=== PATIENT | female | born 1980 | race Caucasian/White ===

== ENCOUNTER 2021-05-26 19:20 | Emergency (ER) | payer OTHER, SELFPAY ==
[2021-05-26] VITALS (10 sets, daily range): BP systolic 102–112; BP diastolic 64–69; PULSE 65–89; RESP 18–19; TEMP 36.1–36.4; O2SAT 97–100
[2021-05-26 21:32] LABS: Add Manual Diff / Slide Review NO; Basophils Absolute Auto 100 /uL (0-100); Eosinophils Absolute Auto 200 /uL (0-450); Eosinophils Percent Auto 2.6 % (2-4); Hematocrit 39.1 % (36-46); Lymphocytes Absolute Auto 1800 /uL (1100-4500); Lymphocytes Percent Auto 28.2 % (25-40); Mean Corpuscular HGB Conc 33.1 % (30-36); Mean Corpuscular Hemoglobin 30.2 PG (26-34); Mean Corpuscular Volume 91.3 fL (80-100); Monocytes Absolute Auto 400 /uL (0-900); Monocytes Percent Auto 6.5 % (3-14); Neutrophils Absolute Auto 3900 /uL (1500-7000); Neutrophils Percent Auto 61.7 % (50-75); Platelet Count 111 X10^3/uL (150-400); Red Blood Cell Count 4.28 X10^6/uL (4.0-5.2); White Blood Cell Count 6.3 X10^3/uL (4.5-11.0)
[2021-05-26 21:39] LABS: Alanine Aminotransferase 41 IU/L (<35); Albumin 3.9 g/dL (3.5-5.0); Albumin Globulin Ratio 1.4 (1.0-2.8); Alkaline Phosphatase 49 U/L (38-126); Aspartate Aminotransferase 46 IU/L (14-36); Blood Urea Nitrogen 16 mg/dL (7-17); Calcium 8.9 mg/dL (8.4-10.2); Carbon Dioxide 26 mmol/L (22-32); Chloride 108 mmol/L (98-107); Estimated Glomerular Filt Rate > 60.0 mL/min (>60); Globulin 2.7 g/dL (1.7-4.1); Glucose 85 mg/dL (70-100); HEMOLYSIS < 15 (0-50); Potassium 3.8 mmol/L (3.4-5.1); Sodium 138 mmol/L (137-145); Total Protein 6.6 g/dL (6.3-8.2)
[2021-05-26] MEDS: methylPREDNISolone 1,000 MG in SODIUM CHLORIDE 0.9% 250 ML 258 ML IV (21:43)
[2021-05-26 21:44] LABS: Bilirubin Total < 0.1 mg/dL (0.2-1.3)
--- NOTE | 2021-05-26 21:49 | ED_ITS ---
HPI - Neuro Symptoms/Deficit General Chief Complaint: Neuro Symptoms/Deficit Stated Complaint: MS ATTACK/BLINDNESS IN LT EYE Time Seen by Provider: 05/26/21 19:51 Source: patient and family Mode of arrival: Family Vehicle Limitations: no limitations History of Present Illness HPI Narrative: 41-year-old woman with a history of multiple sclerosis on Copaxone since December of this year. Followed by Dr. Marshall, neurology, at the [facility]. She notes that in February she had a slight flare with increased left leg weakness and balance issues that resolved. In March had similar flare this time with right leg issues and balance difficulties. She notes that she frequently has urinary urgency and symptoms but does not currently feel like she has a bladder infection. Today she noticed decreased vi sual acuity and a sense that her entire visual field was blurred on the left side. She has a mild headache. When she has extreme lateral gaze to the left she can induce some light flashes in all visual douglass. She describes increased visual snow in the left eye. Visual acuity on the left is 20/30 and 20/20 on the right with her usual glasses in place. She does note that her gait is again mildly unstable as with her MS flares in both February and March. This time she does not note any lower extremity weakness or dysfunction otherwise. On Anticoagulants: No Related Data Allergies Allergy/AdvReac Type Severity Reaction Status Date / Time amoxicillin Allergy Verified 05/26/21 19:35 Sulfa (Sulfonamide Allergy Rash Verified 05/26/21 19:35 Antibiotics) ketorolac [From Toradol] AdvReac Verified 05/26/21 19:35 metoclopramide [From Reglan] AdvReac Verified 05/26/21 19:35 tramadol [From Ultram] AdvReac Verified 05/26/21 19:35 Review of Systems Review of Systems Narrative: Remainder of complete review of systems is otherwise unremarkable except for that included in the HPI. Hematologic/Lymphatic On Anticoagulants: No Patient History Medical History Multiple sclerosis Social History Smoking Status: Never smoker Smoking Status: Never smoker alcohol intake frequency: 0-2 drinks per day Substance Use Type: does not use Exam Narrative Exam Narrative: General: Healthy appearing, in no acute distress. Able to give a complete and coherent history. Well-nourished well-developed HEENT: Moist mucous membranes, normal sclera with reactive pupils, Respiratory: Lungs are clear to auscultation, no wheezing no rales no rhonchi. Full and symmetrical air movement Cardiac: Regular rate and rhythm no murmurs no bruits Abdomen: Soft, nontender, good bowel tones, no flank pain Skin: Warm and dry, no rashes Neurologic: Grossly neurologically intact with no obvious asymmetries or abnormalities, 2+ reflexes at biceps and patellas Extremities: No trauma, well perfused Psych: Cooperative, appropriate insight and affect Initial Vital Signs Initial Vital Signs: Vital Signs Pulse Rate 80 05/26/21 19:30 Pulse Oximetry 97 05/26/21 19:30 Course Orders Ordered: ED Orders 05/26/21 21:20 Complete Blood Count AUTO DIFF Stat Comprehensive Metabolic Panel Stat Discontinued Medications Methylprednisolone 1,000 mg/ (Sodium Chloride) 258 mls @ 258 mls/hr IV NOW ONE Stop: 05/26/21 21:16 Last Infusion: 05/26/21 22:52 Dose: 0 mls/hr Documented by: Admin: 05/26/21 21:43 Dose: 258 mls/hr Documented by: CHINMAY Vital Signs Vital signs: Vital Signs - 8 hr 05/26/21 20:00 05/26/21 20:31 05/26/21 21:00 Temperature Pulse Rate 78 80 68 Respiratory Rate Blood Pressure 103/69 Pulse Oximetry 100 98 98 05/26/21 21:30 05/26/21 23:08 05/26/21 23:09 Temperature Pulse Rate 68 65 65 Respiratory Rate Blood Pressure 102/64 Pulse Oximetry 99 99 99 05/26/21 23:13 Temperature 97.6 F Pulse Rate 66 Respiratory Rate 18 Blood Pressure 102/64 Pulse Oximetry 99 MDM - Neuro Symptoms/Deficit Lab Data Result diagrams: 05/26/21 21:20 05/26/21 21:20 Labs: Lab Results 05/26/21 05/26/21 Range/Units 21:20 21:20 WBC 6.3 (4.5-11.0) X10^3/uL RBC 4.28 (4.0-5.2) X10^6/uL Hgb 13.0 (12.0-16.0) g/dL Hct 39.1 (36-46) % MCV 91.3 (80-100) fL MCH 30.2 (26-34) PG MCHC 33.1 (30-36) % RDW 13.0 (11.6-14.8) % Plt Count 111 L (150-400) X10^3/uL Neut % (Auto) 61.7 (50-75) % Lymph % (Auto) 28.2 (25-40) % [place] % (Auto) 6.5 (3-14) % Eos % (Auto) 2.6 (2-4) % Baso % (Auto) 1.0 (0-2) % Neut # (Auto) 3900 (9581-4586) /uL Lymph # (Auto) 1800 (5523-2361) /uL [place] # (Auto) 400 (0-900) /uL Eos # (Auto) 200 (0-450) /uL Baso # (Auto) 100 (0-100) /uL Sodium 138 (137-145) mmol/L Potassium 3.8 (3.4-5.1) mmol/L Chloride 108 H (98-107) mmol/L Carbon Dioxide 26 (22-32) mmol/L BUN 16 (7-17) mg/dL Creatinine 0.64 (0.52-1.04) mg/dL Estimated GFR > 60.0 (>60) mL/min BUN/Creatinine Ratio 25.0 H (6-22) Glucose 85 (70-100) mg/dL Calcium 8.9 (8.4-10.2) mg/dL Total Bilirubin < 0.1 L (0.2-1.3) mg/dL AST 46 H (14-36) IU/L ALT 41 H (<35) IU/L Alkaline Phosphatase 49 (38-126) U/L Total Protein 6.6 (6.3-8.2) g/dL Albumin 3.9 (3.5-5.0) g/dL Globulin 2.7 (1.7-4.1) g/dL Albumin/Globulin Ratio 1.4 (1.0-2.8) Urine Dip Bedside Urine Glucose Negative Bedside Urine Bilirubin - Negative Bedside Urine Ketone - Negative Urine Specific Aston 1.015 Bedside Urine Occult Blood +/- Bedside Urine pH 6.0 Bedside Urine Protein - Negative Bedside Urine Urobilinogen - Negative Bedside Urine Nitrite - Negative Bedside Urine Leukocytes - Negative Esterase MDM Narrative Medical decision making narrative: 41-year-old woman currently on Copaxone for multiple sclerosis with visual acuity changes and beginning of an MS flare. She is given 1 g of IV Solu-Medrol in the emergency department. Labs are reassuring. Phone call to [facility] to contact her neurologist, Dr. Arnulfo roldan, to see if he has other recommendations regarding imaging or suggestions on continuing Solu-Medrol over the next 2-5 days. 9:53pm spoke with transfer center After discussion with on-call neurologist and patient she would prefer to proceed with 3 days of a 1 g Solu-Medrol each day. She will contact her primary care physician to see if any outpatient options for administering the 1 g of IV Solu-Medrol can be facilitated. Will likely need to return to the emergency room on Thursday and Thursday for infusion treatment. She will also be following up with her neurologist. She tolerated the Solu- Medrol nicely in the emergency department is safe for home discharge at this time IV site is left in place in anticipation of 2nd dose of Solu-Medrol to be given in 24 hours. Discharge Plan Departure Patient Disposition: Home Clinical Impression: Multiple sclerosis Instructions: DI for Multiple Sclerosis Activity Restrictions/Additional Instructions: Thank you for coming in today For your multiple sclerosis flare, the recommendation is 1 g of IV Solu-Medrol for 3 days in a row. Your given the 1st dose in the emergency room on May 26. Please contact your primary care physician and your neurologist to see if they have other recommendations for infusion clinics are options. If no outpatient options are available, please return to the ER tomorrow and we will infuse 1 g of IV Solu-Medrol. We have left your IV intact for this purpose If you have worsening symptoms, please feel free to return to the ER You will need to contact her neurologist in the next day or so to see if he has any additional recommendations. Apparently there are orders for MRIs to be done at the [facility] and these should be scheduled in the near future. There is also a blood test for Wale Creutzfeldt variant that is ordered and can be done at [facility]. I have given you copies of your lab work done today for you to share with your neurologist I wish you the best Referrals: Carlos Manuel Villalta, [Primary Care Provider] -
== END 2021-05-26 23:14 | disposition home or self-care (01) ==
PROVIDERS: Emergency Provider Emergency Medicine; PCP Family Medicine
DX: G35 Multiple sclerosis (principal)
CPT/HCPCS: 36415; 80053; 81003; 85025; 96365; 99284; J2930

== ENCOUNTER 2021-05-27 16:25 | Emergency (ER) | payer OTHER, SELFPAY ==
[2021-05-27 16:35] VITALS: BP 110/66; PULSE 87; RESP 16; TEMP 37.4; O2SAT 97; BMI 20.7
[2021-05-27] MEDS: methylPREDNISolone 1,000 MG in SODIUM CHLORIDE 0.9% 250 ML 258 ML IV (17:25)
--- NOTE | 2021-05-27 18:10 | ED.RECABL ---
HPI - Recheck/Abnormal Lab/Rx General Chief Complaint: Recheck/Abnormal Lab/Rx Stated Complaint: RETURING FOR ANTIBIOTICS Time Seen by Provider: 05/27/21 18:10 History of Present Illness HPI narrative: This is a 41-year-old female who comes emergency department with known multiple sclerosis. Patient has had flares in the past. She has had vision changes in the past as well. This is little bit more significant. She was seen yesterday and with consultation with her neurology team was started on at least 3 possibly 5 days of 1 g of Solu-Medrol daily. Patient is here to receive her 2nd dose. She has had a mild improvement in her vision she thinks possibly 10-20% better. She does notice some color loss as well which she has had intermittently and sometimes switching in the past, she has also had some flashes of light although she states this is improved. She notes more improvement in the right in comparison to the left. Patient denies any other major symptoms currently. She has seen neuropathology in the past. She states that they think it is often more related to changes in her brain and not an optic neuritis. She does not have a local carton counter feeder. We did discuss that might be helpful to get her visual douglass tested and she was interested in this. Patient denies any other concerns currently. Related Data Allergies Allergy/AdvReac Type Severity Reaction Status Date / Time amoxicillin Allergy Verified 05/26/21 19:35 Sulfa (Sulfonamide Allergy Rash Verified 05/26/21 19:35 Antibiotics) ketorolac [From Toradol] AdvReac Verified 05/26/21 19:35 metoclopramide [From Reglan] AdvReac Verified 05/26/21 19:35 tramadol [From Ultram] AdvReac Verified 05/26/21 19:35 Review of Systems Review of Systems ROS Unobtainable: All systems reviewed & are unremarkable except as noted in HPI and below Patient History Medical History Multiple sclerosis Social History Smoking Status: Never smoker Smoking Status: Never smoker alcohol intake frequency: 0-2 drinks per day Substance Use Type: does not use Exam Narrative Exam Narrative: GENERAL: Alert and oriented x three, female in mild distress. Patient seated in recliner. HEENT: Head normocephalic, atraumatic, EOMI, pupils reactive, face symmetric, moist mucous membranes NECK: Supple, full range of motion CARDIOVASCULAR: Regular rate and rhythm without murmurs, rubs or gallops. RESPIRATORY: Breath sounds equal bilaterally, no wheezes rales or rhonchi. ABDOMEN: Soft, nontender. Normoactive bowel sounds all 4 quadrants. No guarding or rebound, rigidity, no mass EXTREMITIES: Normal range of motion, no clubbing or edema. Neurovascularly intact NEUROLOGICAL: Cranial nerves II through XII grossly intact. Moving all extremities SKIN: Warm, dry, no petechiae, no rashes or lesions. Initial Vital Signs Initial Vital Signs: Vital Signs Temperature 99.4 F 05/27/21 16:35 Pulse Rate 87 05/27/21 16:35 Respiratory Rate 16 05/27/21 16:35 Blood Pressure 110/66 05/27/21 16:35 Pulse Oximetry 97 05/27/21 16:35 Course Orders Ordered: Discontinued Medications Methylprednisolone 1,000 mg/ (Sodium Chloride) 258 mls @ 258 mls/hr IV NOW ONE Stop: 05/27/21 16:37 Last Infusion: 05/27/21 18:33 Dose: 0 mls/hr Documented by: Admin: 05/27/21 17:25 Dose: 258 mls/hr Documented by: MARTINE Vital Signs Vital signs: Vital Signs - 8 hr 05/27/21 16:35 Temperature 99.4 F Pulse Rate 87 Respiratory Rate 16 Blood Pressure 110/66 Pulse Oximetry 97 MDM - Recheck/Abnormal Lab/Rx Lab Data Result diagrams: 05/27/21 17:45 05/27/21 17:45 Labs: Lab Results 05/27/21 05/27/21 Range/Units 17:45 17:45 WBC 13.4 H D (4.5-11.0) X10^3/uL RBC 4.43 (4.0-5.2) X10^6/uL Hgb 13.5 (12.0-16.0) g/dL Hct 40.3 (36-46) % MCV 91.1 (80-100) fL MCH 30.5 (26-34) PG MCHC 33.4 (30-36) % RDW 12.7 (11.6-14.8) % Plt Count 122 L (150-400) X10^3/uL Neut % (Auto) 87.2 H D (50-75) % Lymph % (Auto) 7.9 L D (25-40) % [place] % (Auto) 4.8 (3-14) % Eos % (Auto) 0.0 L (2-4) % Baso % (Auto) 0.1 (0-2) % Neut # (Auto) 16397 H (1271-6575) /uL Lymph # (Auto) 1100 (8754-5962) /uL [place] # (Auto) 600 (0-900) /uL Eos # (Auto) 0 (0-450) /uL Baso # (Auto) 0 (0-100) /uL Sodium 139 (137-145) mmol/L Potassium 4.2 (3.4-5.1) mmol/L Chloride 107 (98-107) mmol/L Carbon Dioxide 24 (22-32) mmol/L BUN 17 (7-17) mg/dL Creatinine 0.82 (0.52-1.04) mg/dL Estimated GFR > 60.0 (>60) mL/min BUN/Creatinine Ratio 20.7 (6-22) Glucose 100 (70-100) mg/dL Calcium 9.4 (8.4-10.2) mg/dL Total Bilirubin 0.2 (0.2-1.3) mg/dL AST 40 H (14-36) IU/L ALT 43 H (<35) IU/L Alkaline Phosphatase 44 (38-126) U/L Total Protein 6.8 (6.3-8.2) g/dL Albumin 4.1 (3.5-5.0) g/dL Globulin 2.7 (1.7-4.1) g/dL Albumin/Globulin Ratio 1.5 (1.0-2.8) MDM Narrative Medical decision making narrative: Patient's visual acuity is similar to yesterday. Plan to return for third dose of Solu-medrol in 24 hours. Discharge Plan Departure Patient Disposition: Home Clinical Impression: Multiple sclerosis Activity Restrictions/Additional Instructions: Please return in 24 hours for your 3rd dose of 1 g of Solu-Medrol, I would ask that you touch base with your neurology team to see if they would like you to continue afterwards. If you prefer we can contact them here in the department. There may be an option to have your Solu-Medrol infused at the local infusion clinic which is in the Oncology Department. Your neurology team can order this or your primary care physician can possibly order this under the Neurology team. This may be easier and require less wait for you. It may be helpful to have an ophthalmology exam, we do not have Neuro-Ophthalmology available but Dr. Tuttle or Dr. Cai do work locally and may be willing to see you over the next several days. Please return for worsening symptoms. As noted by Dr. Haynes, you have orders for MRIs as well as a blood test for Wale Creutzfeldt variant to be done at [facility]. Referrals: Max Tuttle MD [Physician] - Carlos Manuel Villalta DO [Primary Care Provider] -
[2021-05-27 18:20] LABS: Alanine Aminotransferase 43 IU/L (<35); Albumin 4.1 g/dL (3.5-5.0); Albumin Globulin Ratio 1.5 (1.0-2.8); Alkaline Phosphatase 44 U/L (38-126); Aspartate Aminotransferase 40 IU/L (14-36); BUN Creatinine Ratio 20.7 (6-22); Bilirubin Total 0.2 mg/dL (0.2-1.3); Blood Urea Nitrogen 17 mg/dL (7-17); Calcium 9.4 mg/dL (8.4-10.2); Carbon Dioxide 24 mmol/L (22-32); Chloride 107 mmol/L (98-107); Estimated Glomerular Filt Rate > 60.0 mL/min (>60); Globulin 2.7 g/dL (1.7-4.1); Glucose 100 mg/dL (70-100); HEMOLYSIS < 15 (0-50); Potassium 4.2 mmol/L (3.4-5.1); Sodium 139 mmol/L (137-145); Total Protein 6.8 g/dL (6.3-8.2)
[2021-05-27 18:52] LABS: Add Manual Diff / Slide Review NO; Basophils Absolute Auto 0 /uL (0-100); Basophils Percent Auto 0.1 % (0-2); Eosinophils Absolute Auto 0 /uL (0-450); Hematocrit 40.3 % (36-46); Hemoglobin 13.5 g/dL (12.0-16.0); Lymphocytes Absolute Auto 1100 /uL (1100-4500); Lymphocytes Percent Auto 7.9 % (25-40); Mean Corpuscular HGB Conc 33.4 % (30-36); Mean Corpuscular Hemoglobin 30.5 PG (26-34); Mean Corpuscular Volume 91.1 fL (80-100); Monocytes Absolute Auto 600 /uL (0-900); Monocytes Percent Auto 4.8 % (3-14); Neutrophils Absolute Auto 11700 /uL (1500-7000); Neutrophils Percent Auto 87.2 % (50-75); Platelet Count 122 X10^3/uL (150-400); Red Blood Cell Count 4.43 X10^6/uL (4.0-5.2); Red Cell Distribution Width 12.7 % (11.6-14.8); White Blood Cell Count 13.4 X10^3/uL (4.5-11.0)
== END 2021-05-27 18:43 | disposition home or self-care (01) ==
PROVIDERS: Emergency Provider Emergency Medicine; PCP Family Medicine
DX: G35 Multiple sclerosis (principal)
CPT/HCPCS: 36415; 80053; 85025; 86711; 96365; 99284; J2930

== ENCOUNTER 2021-05-28 12:36 | Emergency (ER) | payer OTHER, SELFPAY ==
[2021-05-28 12:50] VITALS: BP 106/60; PULSE 73; RESP 16; TEMP 37.1; O2SAT 99; BMI 20.7
--- NOTE | 2021-05-28 12:50 | ED.RECABL ---
HPI - Recheck/Abnormal Lab/Rx General Chief Complaint: Recheck/Abnormal Lab/Rx Stated Complaint: MS attack here for 3rd Infusion Time Seen by Provider: 05/28/21 12:50 History of Present Illness HPI narrative: Patient is a 41-year-old female who has history of MS presenting for her 3rd dose of 1000 mg of Solu-Medrol per Neurology. She initially was seen on 05/26/2021, she is having decreased visual acuity. She denies any weakness. She describes it as looking at her old picture. She reports some improvement Chambers was seen yesterday and noted but 10-15% improvement today she notices very mild improvement. She says that she can see but she certainly has some black spots. Her right eye is slightly tender. But she otherwise appears well and feels good. No weakness numbness tingling nausea vomiting chest pain shortness of breath Related Data Allergies Allergy/AdvReac Type Severity Reaction Status Date / Time amoxicillin Allergy Verified 05/26/21 19:35 Sulfa (Sulfonamide Allergy Rash Verified 05/26/21 19:35 Antibiotics) ketorolac [From Toradol] AdvReac Verified 05/26/21 19:35 metoclopramide [From Reglan] AdvReac Verified 05/26/21 19:35 tramadol [From Ultram] AdvReac Verified 05/26/21 19:35 Review of Systems Review of Systems ROS Unobtainable: All systems reviewed & are unremarkable except as noted in HPI and below Patient History Medical History Multiple sclerosis Social History Smoking Status: Never smoker Smoking Status: Never smoker alcohol intake frequency: 0-2 drinks per day Substance Use Type: does not use Exam Initial Vital Signs Initial Vital Signs: Vital Signs Temperature 98.7 F 05/28/21 12:50 Pulse Rate 73 05/28/21 12:50 Respiratory Rate 16 05/28/21 12:50 Blood Pressure 106/60 05/28/21 12:50 Pulse Oximetry 99 05/28/21 12:50 GENERAL: Well-appearing, well-nourished and in no acute distress. EYES: Extraocular muscles intact per all CARDIOVASCULAR: peripheral pulses in tact, cap refill <2 sec RESPIRATORY: No respiratory distress, speaks in full sentences without difficulty EXTREMITIES: Normal range of motion, no clubbing or edema. Neurovascularly intact NEUROLOGICAL: Cranial nerves II through XII grossly intact. Normal gait and speech. Broom Stitcher strength equal bilaterally sensation in upper and lower extremities intact SKIN: Warm, dry, no petechiae, no rashes or lesions. Course Orders Ordered: Discontinued Medications Methylprednisolone 1,000 mg/ (Sodium Chloride) 258 mls @ 258 mls/hr IV NOW ONE Stop: 05/28/21 12:52 Last Infusion: 05/28/21 14:15 Dose: 0 mls/hr Documented by: Admin: 05/28/21 13:14 Dose: 258 mls/hr Documented by: CTRJJ Vital Signs Vital signs: Vital Signs - 8 hr 05/28/21 12:50 Temperature 98.7 F Pulse Rate 73 Respiratory Rate 16 Blood Pressure 106/60 Pulse Oximetry 99 MDM - Recheck/Abnormal Lab/Rx MDM Narrative Medical decision making narrative: I discussed case with her neurologist. She states she does not need anymore Solu-Medrol. In fact he will see her in clinic and he has a new plan. Patient understands and agrees with this. She would prefer to go home and be with children. Discharge Plan Departure Patient Disposition: Home Clinical Impression: Multiple sclerosis Instructions: DI for Multiple Sclerosis Activity Restrictions/Additional Instructions: *You have been diagnosed with multiple sclerosis *What to do: I discussed case with your neurologist in [place] provider. He stated only 3 days of steroids. You may still have improvement for up to 1 month. He has new plans for you and will see you in clinic *Continue to take medications as directed *Follow up with your primary care provider in 2-3 days *Return to ER if you should have increasing weakness, worsening symptoms or any new, worsening or concerning symptoms Referrals: Carlos Manuel Villalta DO [Primary Care Provider] -
[2021-05-28] MEDS: methylPREDNISolone 1,000 MG in SODIUM CHLORIDE 0.9% 250 ML 258 ML IV (13:14)
[2021-05-28 14:39] VITALS: PULSE 64; RESP 16; O2SAT 99
== END 2021-05-28 14:42 | disposition home or self-care (01) ==
PROVIDERS: Emergency Provider Emergency Medicine; PCP Family Medicine
DX: G35 Multiple sclerosis (principal)
CPT/HCPCS: 96365; 99283; 99284; J2930

== ENCOUNTER 2022-04-08 18:50 | Emergency (ER) | payer OTHER, SELFPAY ==
[2022-04-08 19:00] VITALS: BP 138/79; PULSE 95; RESP 18; TEMP 36.8; O2SAT 100; BMI 21.6
[2022-04-08 19:50] LABS: Add Manual Diff / Slide Review NO; Basophils Absolute Auto 100 /uL (0-100); Eosinophils Absolute Auto 0 /uL (0-450); Eosinophils Percent Auto 0.4 % (2-4); Hematocrit 41.6 % (36-46); Lymphocytes Absolute Auto 1400 /uL (1100-4500); Lymphocytes Percent Auto 19.3 % (25-40); Mean Corpuscular HGB Conc 33.7 % (30-36); Mean Corpuscular Hemoglobin 30.2 PG (26-34); Mean Corpuscular Volume 89.6 fL (80-100); Monocytes Absolute Auto 500 /uL (0-900); Monocytes Percent Auto 6.7 % (3-14); Neutrophils Absolute Auto 5100 /uL (1500-7000); Neutrophils Percent Auto 72.6 % (50-75); Platelet Count 117 X10^3/uL (150-400); Red Blood Cell Count 4.64 X10^6/uL (4.0-5.2); Red Cell Distribution Width 13.1 % (11.6-14.8); White Blood Cell Count 7.1 X10^3/uL (4.5-11.0)
--- NOTE | 2022-04-08 19:51 | ED_ITS ---
HPI - Extremity Problem General Chief complaint: Extremity Problem,Nontraumatic Stated complaint: MS flare Time Seen by Provider: 04/08/22 19:51 Source: patient and family Mode of arrival: Ambulatory History of Present Illness HPI Narrative: 42-year-old woman with history of multiple sclerosis. Followed by Neurology at the [facility], Dr Neal. For the last 3 days she has been having increased flare. She describes symptoms initially starting on the bottom of her left foot and over 3 days progressive paresthesias extending up the left side of her body now almost to her shoulder. Today she started noting paresthe diana on the bottom of her right foot and around mid afternoon today she began noticing a ?MS hug? with midthoracic bandlike paresthesia. She states that she has had increasing tremor that is mild. She still has visual abnormalities with no changes over the last 3 days. She is noting some tightness in spinal cord lumbar region left side and increasing difficulty with gait instability which she has noticed previously. She notes that she and her removal to [place] on April 18, trying to move, find a new house etc. has been significantly stressful and she believes that is the trigger for this phase. She describes no fever, cough, headaches, chest pain, palpitations, nausea vomiting or diarrhea. She is trying a 72 hour fast to see if the stimulation of the stem cells and autophogy at 72 hours helps in any way. She has tried plasmapheresis and did not find it helpful. She currently is not on any MS modulating medications the last was a Copaxone that was discontinued last May when it was not particularly effective. Related Data Allergies Allergy/AdvReac Type Severity Reaction Status Date / Time amoxicillin Allergy Verified 04/08/22 19:05 Sulfa (Sulfonamide Allergy Rash Verified 04/08/22 19:05 Antibiotics) ketorolac [From Toradol] AdvReac Verified 04/08/22 19:05 metoclopramide [From Reglan] AdvReac Verified 04/08/22 19:05 tramadol [From Ultram] AdvReac Verified 04/08/22 19:05 Review of Systems Review of Systems Narrative: Remainder of complete review of systems is otherwise unremarkable except for that included in the HPI. Patient History Medical History (Updated 04/08/22 @ 21:16 by Talia Haynes MD) Multiple sclerosis Social History Smoking Status: Never smoker Smoking Status: Never smoker alcohol intake frequency: 0-2 drinks per day Substance Use Type: does not use Exam Initial Vital Signs Initial Vital Signs: Vital Signs Temperature 98.2 F 04/08/22 19:00 Pulse Rate 95 H 04/08/22 19:00 Respiratory Rate 18 04/08/22 19:00 Blood Pressure 138/79 04/08/22 19:00 Pulse Oximetry 100 04/08/22 19:00 General: Healthy appearing, in no acute distress. Able to give a complete and coherent history. Well-nourished well-developed HEENT: Moist mucous membranes, normal sclera with reactive pupils, Neck: No JVD, supple Respiratory: Lungs are clear to auscultation, no wheezing no rales no rhonchi. Full and symmetrical air movement Cardiac: Regular rate and rhythm no murmurs no bruits Abdomen: Soft, nontender, good bowel tones, no flank pain Skin: Warm and dry, no rashes Neurologic: Mild paresthesia over the entire left side of her body to the shoulder. Mild gait difficulty Extremities: No trauma, well perfused Psych: Cooperative, appropriate insight and affect Course Orders Ordered: Discontinued Medications Methylprednisolone 1,000 mg/ (Sodium Chloride) 258 mls @ 258 mls/hr IV NOW ONE Stop: 04/08/22 20:23 Last Infusion: 04/08/22 21:41 Dose: 0 mls/hr Documented by: Admin: 04/08/22 20:41 Dose: 258 mls/hr Documented by: KANA Vital Signs Vital signs: Vital Signs - 8 hr 04/08/22 21:49 Pulse Rate 94 H Respiratory Rate 15 Blood Pressure 105/55 L Pulse Oximetry 98 MDM - Extremity (Nontraumatic) Lab Data Result diagrams: 04/08/22 19:11 04/08/22 19:11 Labs: Lab Results 04/08/22 04/08/22 04/08/22 Range/Units 19:11 19:11 19:40 WBC 7.1 (4.5-11.0) X10^3/uL RBC 4.64 (4.0-5.2) X10^6/uL Hgb 14.0 (12.0-16.0) g/dL Hct 41.6 (36-46) % MCV 89.6 (80-100) fL MCH 30.2 (26-34) PG MCHC 33.7 (30-36) % RDW 13.1 (11.6-14.8) % Plt Count 117 L (150-400) X10^3/uL Neut % (Auto) 72.6 (50-75) % Lymph % (Auto) 19.3 L (25-40) % Yates % (Auto) 6.7 (3-14) % Eos % (Auto) 0.4 L (2-4) % Baso % (Auto) 1.0 (0-2) % Neut # (Auto) 5100 (0401-3533) /uL Lymph # (Auto) 1400 (6919-1149) /uL Yates # (Auto) 500 (0-900) /uL Eos # (Auto) 0 (0-450) /uL Baso # (Auto) 100 (0-100) /uL Sodium 137 (137-145) mmol/L Potassium 4.4 (3.4-5.1) mmol/L Chloride 103 (98-107) mmol/L Carbon Dioxide 23 (22-32) mmol/L BUN 9 (7-17) mg/dL Creatinine 0.64 (0.52-1.04) mg/dL Estimated GFR > 60 (>60) mL/min BUN/Creatinine Ratio 14.1 (6-22) Glucose 68 L (70-100) mg/dL Calcium 9.4 (8.4-10.2) mg/dL Total Bilirubin 0.8 (0.2-1.3) mg/dL AST 51 H (14-36) IU/L ALT 64 H (<35) IU/L Alkaline Phosphatase 57 (38-126) U/L Total Protein 7.6 (6.3-8.2) g/dL Albumin 4.8 (3.5-5.0) g/dL Globulin 2.8 (1.7-4.1) g/dL Albumin/Globulin Ratio 1.7 (1.0-2.8) Urine RBC None seen (0-5/HPF) Urine WBC None seen (0-5/HPF) Ur Squamous Epith Cells 5-10 /hpf H (0-5/HPF) Urine Bacteria None seen (None) Ur Culture Indicated? Cult not indicated Urine Dip Bedside Urine Glucose 100 mg/dl Bedside Urine Ketone ++ 40 Urine Specific [place] 1.01 Bedside Urine Occult Blood + Bedside Urine pH 6 Bedside Urine Protein - Negative Bedside Urine Urobilinogen - Negative Bedside Urine Nitrite - Negative Bedside Urine Leukocytes - Negative Esterase MDM Narrative Medical decision making narrative: 815pm phone call to the [facility] to trying page her neurologist. In a queue to even talk to the triage nurse to begin paging. Labs returned reassuring with no evidence of electrolyte abnormalities or infection. 1 g of Solu-Medrol is started. Will a eventually talk with the neurologist but patient will be discharged home. Will contact her with plan but do anticipate she will need to return to the emergency department tomorrow for another dose of Solu-Medrol. Dr Zabala, Neurology. Suggested 3 days IV solumedrol. Does recommend MR brain and entire spine w and w/o contrast. Images sent to and Dr Almeida. Will see if televideo apt for follow up after three days of IV solumedrol and Brain/spine imaging can be arranged Discharge Plan Departure Patient Disposition: Home Clinical Impression: Multiple sclerosis exacerbation Instructions: DI for Multiple Sclerosis Activity Restrictions/Additional Instructions: Thank you for coming in today I am sorry that your experiencing so much stress with your move. Your symptoms are very classic for an MS flare. Unfortunately due to very high volumes of been unable to even begin to talk to the call center to page your neurologist. You have been given a g of Solu-Medrol and are safe for home discharge. I will text you at [phone] with remainder of the plan once I do talk with the neurologist this evening. I would anticipate returning to the emergency department tomorrow in the afternoon for another g of IV Solu-Medrol. Referrals: Carlos Manuel Villalta, [Primary Care Provider] -
[2022-04-08 19:54] LABS: Alanine Aminotransferase 64 IU/L (<35); Albumin 4.8 g/dL (3.5-5.0); Albumin Globulin Ratio 1.7 (1.0-2.8); Alkaline Phosphatase 57 U/L (38-126); Aspartate Aminotransferase 51 IU/L (14-36); BUN Creatinine Ratio 14.1 (6-22); Bilirubin Total 0.8 mg/dL (0.2-1.3); Blood Urea Nitrogen 9 mg/dL (7-17); Calcium 9.4 mg/dL (8.4-10.2); Carbon Dioxide 23 mmol/L (22-32); Chloride 103 mmol/L (98-107); Estimated Glomerular Filt Rate > 60 mL/min (>60); Globulin 2.8 g/dL (1.7-4.1); Glucose 68 mg/dL (70-100); HEMOLYSIS < 15 (0-50); Potassium 4.4 mmol/L (3.4-5.1); Sodium 137 mmol/L (137-145); Total Protein 7.6 g/dL (6.3-8.2)
[2022-04-08 20:03] LABS: RBC Urine None Seen (0-5/HPF); WBC Urine None Seen (0-5/HPF)
[2022-04-08 20:04] LABS: Bacteria Urine None Seen; Culture Indicated Urine Cult Not Indicated; Squamous Epithelial Cell Urine 5-10 /HPF (0-5/HPF)
[2022-04-08] MEDS: methylPREDNISolone 1,000 MG in SODIUM CHLORIDE 0.9% 250 ML 258 MG IV (20:41)
--- NOTE | 2022-04-08 21:48 | PC.NURSE ---
Pt with history of MS. reports this morning with numbness to left foot getting worse throughout the day. Now numbness extending up leg.
[2022-04-08 21:49] VITALS: BP 105/55; PULSE 94; RESP 15; O2SAT 98
== END 2022-04-08 21:51 | disposition home or self-care (01) ==
PROVIDERS: Emergency Provider Emergency Medicine; PCP Family Medicine
DX: G35 Multiple sclerosis (principal)
CPT/HCPCS: 36415; 80053; 81003; 81015; 85025; 96365; 99284; J2930

== ENCOUNTER 2022-04-09 16:19 | Emergency (ER) | payer OTHER, SELFPAY ==
--- NOTE | 2022-04-09 16:21 | DI.MRI.S_ITS ---
PROCEDURE: MR HEAD/BRAIN WO/W CON INDICATIONS: ms flare TECHNIQUE: Noncontrast sagittal and axial FLAIR, axial and coronal T2 fast spin echo, axial VIBE, axial gradient echo, axial diffusion and ADC through the brain. After the administration of contrast, axial and coronal VIBE with fat saturation through the brain. COMPARISON: None. FINDINGS: Image quality: Excellent. CSF spaces: Ventricles are normal in size and shape. Basal cisterns are patent. No extra-axial fluid collections. Brain: No intracranial bleeds or mass effects. Lee-white matter interface appears intact. There are several scattered periventricular, deep white matter T2/FLAIR hyperintensities measuring up to 1.1 x 1.2 cm on the left. This lesion is pericallosal in the left parietal lobe. No associated enhancement or diffusion restriction abnormality. Similar but smaller T2/FLAIR hyperintensities noted on the right. No abnormal intracranial enhancement. Diffusion weighted images show no acute ischemic insults. Brainstem appears normal. Normal intravascular flow voids are present. Skull and face: Calvarial marrow signal is normal. Orbits appear normal. Sinuses: Sinuses and mastoids are clear. IMPRESSION: 1. Scattered T2/FLAIR hyperintense lesions noted in the deep white matter of the bilateral cerebral hemisphere with largest lesion measuring 1.2 cm seen in the pericallosal white matter of the posterior left parietal lobe. No associated enhancement or diffusion restriction abnormality to suggest active lesion. Findings are compatible with a demyelinating process given reported history of multiple sclerosis. 2. Otherwise, no acute abnormalities identified in the brain. Dictated by: Phuc Connors M.D. on 04/09/2022 at 20:34 Approved by: Phuc Connors M.D. on 04/09/2022 at 20:46
--- NOTE | 2022-04-09 16:21 | DI.MRI.S_ITS ---
PROCEDURE: MR LUMBAR SPINE WO/W CON INDICATIONS: ms flare. neurology requested. TECHNIQUE: Noncontrast sagittal T1 spin echo and T2 fast spin echo, sagittal STIR, axial T1 and T2 fast spin echo through the lumbar spine. In cases with scoliosis, additional coronal T2 fast spin echo may be performed. After the administration of contrast, sagittal and axial T1 spin echo with fat saturation through the lumbar spine. COMPARISON: None. FINDINGS: Image quality: Excellent. Alignment and curvature: There is normal bony alignment. Marrow: Marrow is of normal overall signal. No acute vertebral body compression fractures. No suspicious marrow enhancement. Intravertebral hemangioma is noted at T12, L4, and L5. Spinal cord: Conus medullaris terminates at the L1 level. Visualized spinal cord demonstrates normal signal, without suspicious enhancement. Paraspinous soft tissues: No paravertebral masses or abnormal enhancement. T12-L1: Normal appearance. L1-L2: Normal appearance. L2-L3: Normal appearance. L3-L4: Minimal symmetric disc bulge. Mild bilateral facet arthropathy. There is effacement of the anterior thecal sac without significant neuroforaminal or spinal canal stenosis. L4-L5: Minimal loss of disc signal intensity. No significant disc space loss. Diffuse disc bulge. There is a left lateral slip of T2 hyperintensity compatible with an annular fibrosus fissure. Mild bilateral facet arthropathy. There is mild left and minimal right bilateral neuroforaminal stenosis without significant spinal canal stenosis. L5-S1: Normal appearance. IMPRESSION: Lumbar spine without acute abnormalities or suspicious mass or enhancement. Mild multilevel lumbar spondylosis as described above by vertebral level. Findings are most prominent at L3-4 and L4-5. Posterior, left lateral annular fibrosus fissure of the L4-5 disc. Dictated by: Phuc Connors M.D. on 04/09/2022 at 21:22 Approved by: Phuc Connors M.D. on 04/09/2022 at 21:27
--- NOTE | 2022-04-09 16:21 | DI.MRI.S_ITS ---
PROCEDURE: MR THORACIC SPINE WO/W CON INDICATIONS: ms flare. neurology requested. TECHNIQUE: Noncontrast sagittal T1 spin echo and T2 fast spin echo, sagittal STIR, axial T1 and T2 fast spin echo through the thoracic spine. After the administration of contrast, axial and sagittal T1 spin echo with fat saturation through the thoracic spine. COMPARISON: None. FINDINGS: Image quality: Excellent. Alignment and curvature: There is normal bony alignment. Marrow: Marrow is of normal overall signal. No acute vertebral body compression fractures. Vertebral body hemangiomas noted at T9 and T12. Spinal cord: Visualized spinal cord is of normal signal and size, without abnormal enhancement. No definite demyelinating plaque identified in the thoracic spinal cord. Paraspinous soft tissues: No paravertebral masses or abnormal enhancement. Miscellaneous: Central canal and foramina appear widely patent at all scanned levels. IMPRESSION: Thoracic spine without acute abnormalities or suspicious enhancement. No definite thoracic spinal cord lesions identified in this patient with history of multiple sclerosis. Dictated by: Phuc Connors M.D. on 04/09/2022 at 21:13 Approved by: Phuc Connors M.D. on 04/09/2022 at 21:17
--- NOTE | 2022-04-09 16:21 | DI.MRI.S_ITS ---
PROCEDURE: MR CERVICAL SPINE WO/W CON INDICATIONS: ms flare. neurology requested. TECHNIQUE: Noncontrast sagittal T1 spin echo and T2 fast spin echo, sagittal STIR, sagittal PD fast spin echo, foraminal oblique sagittal T2 fast spin echo, axial gradient echo or T2 fast spin echo through the cervical spine. After the administration of contrast, sagittal and axial T1 spin echo with fat saturation through the cervical spine. COMPARISON: None. FINDINGS: Image quality: Excellent. Alignment and curvature: There is normal bony alignment. Marrow: Marrow demonstrates normal overall signal. Spinal cord: Visualized spinal cord is normal in size, with 2 visualized cervical cord lesions measuring approximately 9 mm in craniocaudal dimension and 6 mm in diameter. This lesion is seen at the level of C2 without evidence for enhancement. The 2nd lesion is seen at the level of C3 measuring approximately 9 mm in craniocaudal dimension and approximately 4 mm in diameter. There is no visible enhancement of this lesion. Otherwise, remainder of the visualized cervical spinal cord demonstrates normal signal intensity. No other areas of suspicious enhancement. No cerebellar tonsillar herniation. Paraspinous soft tissues: No paravertebral masses or suspicious enhancement. C2-C3: Normal appearance. C3-C4: Normal appearance. C4-C5: Broad-based posterior disc osteophyte complex. Mild effacement of the anterior thecal sac. No significant neural foraminal stenosis. No significant spinal canal stenosis. C5-C6: Broad-based posterior disc osteophyte complex without significant neural foraminal or spinal canal stenosis. C6-C7: Broad-based posterior disc osteophyte complex without significant neural foraminal or spinal canal stenosis. C7-T1: Normal appearance. IMPRESSION: 1. There are 2 cervical cord white matter lesions noted at the levels of C2 and C3 respectively compatible with demyelinating disease. No evidence for associated enhancement of these lesions. 2. Otherwise, no acute abnormalities identified in the cervical spine. 3. Mild multilevel cervical spondylosis most pronounced from C4-5 through C6-7. Dictated by: Phuc Connors M.D. on 04/09/2022 at 20:51 Approved by: Phuc Connors M.D. on 04/09/2022 at 21:10
[2022-04-09] MEDS: methylPREDNISolone 1,000 MG in SODIUM CHLORIDE 0.9% 250 ML 258 MG IV (19:48)
[2022-04-09 19:52] VITALS: BP 113/57; PULSE 97; RESP 15; TEMP 36.8; O2SAT 100; BMI 21.6
--- NOTE | 2022-04-09 19:57 | PC.NURSE ---
Pt reports worsening ms symptoms. States her she is feeling unsteady on her legs. Today reports numbness up to her chest with shortness of breath related to the MS Band.
--- NOTE | 2022-04-09 20:38 | ED_ITS ---
HPI - Recheck/Abnormal Lab/Rx General Chief Complaint: Recheck/Abnormal Lab/Rx Stated Complaint: MS FLARE Time Seen by Provider: 04/09/22 16:21 Source: patient Mode of arrival: Ambulatory History of Present Illness HPI narrative: 42-year-old woman with multiple sclerosis currently not on medications with increasing symptoms starting 4 days ago. She was started on 3 days of Solu- Medrol, 1 g daily and returns for her infusion today. After discussing findings with her neurologist last night he did recommend imaging of her brain and entire spine which was done today. She notes progression of paresthesias of the right side now. She describes tingling sensation in the palms and the soles that almost feels as if there being constantly rubbed against a sandpaper. She also describes increasing numbness of her entire torso, describes being unable to heal her anterior chest wall at all. She is able to take deep breath but feels like she is somewhat short of breath. Related Data Allergies Allergy/AdvReac Type Severity Reaction Status Date / Time amoxicillin Allergy Verified 04/08/22 19:05 Sulfa (Sulfonamide Allergy Rash Verified 04/08/22 19:05 Antibiotics) ketorolac [From Toradol] AdvReac Verified 04/08/22 19:05 metoclopramide [From Reglan] AdvReac Verified 04/08/22 19:05 tramadol [From Ultram] AdvReac Verified 04/08/22 19:05 Review of Systems Review of Systems Narrative: Remainder of complete review of systems is otherwise unremarkable except for that included in the HPI. Patient History Medical History (Updated 04/09/22 @ 21:17 by Talia Haynes MD) Multiple sclerosis Social History Smoking Status: Never smoker Smoking Status: Never smoker alcohol intake frequency: 0-2 drinks per day Substance Use Type: does not use Exam Initial Vital Signs Initial Vital Signs: Vital Signs Temperature 98.3 F 04/09/22 19:52 Pulse Rate 97 H 04/09/22 19:52 Respiratory Rate 15 04/09/22 19:52 Blood Pressure 113/57 L 04/09/22 19:52 Pulse Oximetry 100 04/09/22 19:52 General: Alert appropriate in no acute distress Respiratory: Able to speak in full sentences, no obvious respiratory distress Skin: No obvious rashes, warm and dry Neurologic: Increased paresthesias now including right leg and upper chest. Psych: appropriate insight and affect, cooperative Course Orders Ordered: ED Orders 04/09/22 16:21 MR cervical spine wo/w con Stat MR head/brain wo/w con Stat MR lumbar spine wo/w con Stat MR thoracic spine wo/w con Stat Discontinued Medications Methylprednisolone 1,000 mg/ (Sodium Chloride) 258 mls @ 258 mls/hr IV NOW ONE Stop: 04/09/22 16:22 Last Admin: 04/09/22 19:48 Dose: 258 mls/hr Documented by: KANA Vital Signs Vital signs: Vital Signs - 8 hr 04/09/22 19:52 Temperature 98.3 F Pulse Rate 97 H Respiratory Rate 15 Blood Pressure 113/57 L Pulse Oximetry 100 MDM - Recheck/Abnormal Lab/Rx MDM Narrative Medical decision making narrative: 42-year-old woman with acute MS exacerbation. Brain and spine imaging was done and was not yet returned by time of discharge. She was given her 2nd g of IV Solu-Medrol and will need her 3rd tomorrow. When she returns tomorrow would like to give her copies of the MRI result. She is complaining of increasing chest paresthesias and a sensation that she was feeling a type course that with some mild dyspnea associated with that. Her breathing was otherwise uncovered today but if that is worse tomorrow we may need to further evaluate and discuss with the neurologist and decide if an extended course of treatment is appropriate. Patient will be back tomorrow afternoon for her 3rd dose of steroid Discharge Plan Departure Patient Disposition: Home Clinical Impression: Multiple sclerosis exacerbation Activity Restrictions/Additional Instructions: Thank you for coming in today You got your to 2nd of 3 doses of IV Solu-Medrol The entire MRI results have not yet been read. Results should be available by tomorrow and we can print them out for you to take home. I am glad you ask for the disc as well. If you are noticing that your continuing to have more tightness around her chest and more shortness of breath please make sure that you mention that early to the doctor that you are meeting tomorrow. If that is worse, would likely will again review your case with Neurology and they may recommend a total of 5 days of Solu-Medrol. Same time, same place for your 3rd infusion of Solu-Medrol tomorrow :) I wish you the best Referrals: Carlos Manuel Villalta DO [Primary Care Provider] -
[2022-04-09 21:26] VITALS: BP 101/57; PULSE 84; RESP 64; O2SAT 100
== END 2022-04-09 21:31 | disposition home or self-care (01) ==
PROVIDERS: Emergency Provider Emergency Medicine; PCP Family Medicine
DX: G35 Multiple sclerosis (principal); R20.2 Paresthesia of skin; R06.00 Dyspnea, unspecified
CPT/HCPCS: 70553; 72156; 72157; 72158; 96365; 96366; 99284; A9579; J2930

== ENCOUNTER 2022-04-10 19:13 | Emergency (ER) | payer OTHER, SELFPAY ==
[2022-04-10 19:33] VITALS: BP 115/65; PULSE 85; RESP 16; TEMP 36.4; O2SAT 100; BMI 21.6
[2022-04-10] MEDS: methylPREDNISolone 1,000 MG in SODIUM CHLORIDE 0.9% 250 ML 258 MG IV (19:49)
--- NOTE | 2022-04-10 22:47 | ED_ITS ---
HPI - Recheck/Abnormal Lab/Rx General Chief Complaint: Recheck/Abnormal Lab/Rx Stated Complaint: here for 3rd infusion Time Seen by Provider: 04/10/22 22:34 Source: patient Mode of arrival: Ambulatory History of Present Illness HPI narrative: Patient is a 42-year-old female with history of multiple sclerosis not currently taking any medications here for her 3rd dose of 1 g of Solu-Medrol. She had outpatient MRI of brain cervical spine thoracic spine and lumbar spine done yesterday. CT brain does show a flare. Lumbar does show disc bulge as well. She has had a lot of stress in her life lately they are moving to [facility] next week. She had an infection with COVID 1 month ago. She previously has not responded to Solu-Medrol needed plasmapheresis which she also had minimal response to. She understands that there is very little anyone can do. She would like to go home. She is having some pins and needles in both hands and feet. She feels weakness in her hands and difficulty writing although she is still able to do so. Previously her MS was controlled with diet and exercise. Related Data Allergies Allergy/AdvReac Type Severity Reaction Status Date / Time amoxicillin Allergy Verified 04/08/22 19:05 Sulfa (Sulfonamide Allergy Rash Verified 04/08/22 19:05 Antibiotics) ketorolac [From Toradol] AdvReac Verified 04/08/22 19:05 metoclopramide [From Reglan] AdvReac Verified 04/08/22 19:05 tramadol [From Ultram] AdvReac Verified 04/08/22 19:05 Review of Systems Review of Systems Narrative: GENERAL: Denies chills, fatigue, malaise, fever, sweats, travel HEENT: Denies sinus pain, ear pain, sore throat, difficulty swallowing, neck pain RESPIRATORY: Denies dyspnea, cough, wheezing, hemoptysis, sputum. CARDIOVASCULAR: Denies chest pain, palpitations, orthopnea, edema GASTROINTESTINAL: Denies nausea, vomiting, abdominal pain, diarrhea, constipation, melena. : Denies dysuria, frequency, incontinence, hematuria, urinary retention, flank pain. MUSCULOSKELETAL: Denies weakness, joint pain, or bony pain SKIN: No rash, no erythema, no pruritus NEUROLOGIC: See HPI PSYCHIATRIC: No concerning psychosocial issues. 12 point review of systems is negative except for those stated above and HPI Patient History Medical History (Updated 04/10/22 @ 23:09 by Callie Perez DO) Multiple sclerosis Social History Smoking Status: Never smoker Smoking Status: Never smoker alcohol intake frequency: 0-2 drinks per day Substance Use Type: does not use Exam Initial Vital Signs Initial Vital Signs: Vital Signs Temperature 97.6 F 04/10/22 19:33 Pulse Rate 85 04/10/22 19:33 Respiratory Rate 16 04/10/22 19:33 Blood Pressure 115/65 04/10/22 19:33 Pulse Oximetry 100 04/10/22 19:33 GENERAL: Very pleasant 42-year-old female CARDIOVASCULAR: peripheral pulses in tact, cap refill <2 sec RESPIRATORY: No respiratory distress, speaks in full sentences without difficulty EXTREMITIES: Normal range of motion, no clubbing or edema. Neurovascularly intact NEUROLOGICAL: Cranial nerves II through XII grossly intact. Normal gait and speech. Label Printer strength equal bilaterally A&O x4. SKIN: Warm, dry, no petechiae, no rashes or lesions. Course Orders Ordered: Discontinued Medications Methylprednisolone 1,000 mg/ (Sodium Chloride) 258 mls @ 258 mls/hr IV NOW ONE Stop: 04/10/22 19:29 Last Infusion: 04/10/22 20:56 Dose: 0 mls/hr Documented by: Admin: 04/10/22 19:49 Dose: 258 mls/hr Documented by: KANA Vital Signs Vital signs: Vital Signs - 8 hr 04/10/22 19:33 Temperature 97.6 F Pulse Rate 85 Respiratory Rate 16 Blood Pressure 115/65 Pulse Oximetry 100 MDM - Recheck/Abnormal Lab/Rx MDM Narrative Medical decision making narrative: At this time patient would like to go. She previously has not responded to Solu-Medrol she has not seen much improvement this time. I have offered to talk to Her neurologist at this time she declined since she is moving and will need to establish a new neurologist any way. She also is adamant that she does not want plasmapheresis again, she had painful central line placement. At this time there is really nothing further for me to do she is quite aware of the situation. I have encouraged her that if her symptoms get worsen she should return to the nearest emergency department. Discharge Plan Departure Patient Disposition: Home Clinical Impression: Multiple sclerosis exacerbation Instructions: DI for Multiple Sclerosis Activity Restrictions/Additional Instructions: *You have been diagnosed with multiple sclerosis exacerbation *What to do: Best of luck with your move. Please find a neurologist as soon as possible. If you are continuing to have any worsening symptoms do not hesitate to go to the nearest emergency department or return here if needed. *Continue to take medications as directed *Follow up with your primary care provider in 2-3 days or call [phone] *Return to ER if you should have any new, worsening or concerning symptoms Referrals: Carlos Manuel Villalta DO [Primary Care Provider] - Visit Report Forms: Patient Portal/API
[2022-04-10 23:20] VITALS: BP 105/65; PULSE 66; RESP 17; O2SAT 96
== END 2022-04-10 23:27 | disposition home or self-care (01) ==
PROVIDERS: Emergency Provider Emergency Medicine; PCP Family Medicine
DX: G35 Multiple sclerosis (principal)
CPT/HCPCS: 96365; 99283; 99284; J2930

== ENCOUNTER 2022-04-12 20:48 | Emergency (ER) | payer OTHER, SELFPAY ==
[2022-04-12 21:10] VITALS: BP 123/67; PULSE 71; RESP 16; TEMP 36; O2SAT 98; BMI 21.6
[2022-04-13] MEDS: methylPREDNISolone 1,000 MG in SODIUM CHLORIDE 0.9% 250 ML 258 MG IV (00:10)
[2022-04-13 00:14] LABS: Add Manual Diff / Slide Review YES; Hematocrit 41.6 % (36-46); Hemoglobin 14.1 g/dL (12.0-16.0); Mean Corpuscular HGB Conc 33.8 % (30-36); Mean Corpuscular Hemoglobin 30.3 PG (26-34); Mean Corpuscular Volume 89.7 fL (80-100); Platelet Count 93 X10^3/uL (150-400); Red Blood Cell Count 4.64 X10^6/uL (4.0-5.2); Red Cell Distribution Width 13.4 % (11.6-14.8); White Blood Cell Count 8.4 X10^3/uL (4.5-11.0)
[2022-04-13 00:19] LABS: Alanine Aminotransferase 39 IU/L (<35); Albumin 4.2 g/dL (3.5-5.0); Albumin Globulin Ratio 1.6 (1.0-2.8); Alkaline Phosphatase 46 U/L (38-126); Aspartate Aminotransferase 28 IU/L (14-36); BUN Creatinine Ratio 26.2 (6-22); Bilirubin Total 0.3 mg/dL (0.2-1.3); Blood Urea Nitrogen 16 mg/dL (7-17); Calcium 8.9 mg/dL (8.4-10.2); Carbon Dioxide 26 mmol/L (22-32); Chloride 104 mmol/L (98-107); Estimated Glomerular Filt Rate > 60 mL/min (>60); Globulin 2.7 g/dL (1.7-4.1); Glucose 81 mg/dL (70-100); HEMOLYSIS < 15 (0-50); Potassium 4.2 mmol/L (3.4-5.1); Sodium 138 mmol/L (137-145); Total Protein 6.9 g/dL (6.3-8.2)
--- NOTE | 2022-04-13 00:49 | ED.NEUROSD ---
HPI - Neuro Symptoms/Deficit General Chief Complaint: Neuro Symptoms/Deficit Stated Complaint: MS attack Time Seen by Provider: 04/12/22 23:24 Source: patient Mode of arrival: Ambulatory History of Present Illness HPI Narrative: 42-year-old female nonsmoker with known diagnosis of multiple sclerosis is managed by Neurology at the [facility] (Dr. Neal). She presents with her in the chief complaint of ongoing neurologic symptoms including numbness, tingling and burning of her hands and feet up to her shoulders and the MS hug. She has had ongoing visual disturbances for years and notes no change. This is her 4th day in a row and after consultation on day 1 with her Neurology group she was encouraged to present for 3-5 days of Solu-Medrol 1000 mg. Historically she has not responded to this therapy and it would appear as if this time around she has not either. She denies any change in medications and states that usually she can control her symptoms with stress medication and diet. She states that she and her are preparing to move to [place] next week and this seems to be the most likely cause of her stress response. She denies any trauma or injury. She has no chest pain or shortness of breath. She denies nausea or vomiting. Extensive imaging was ordered after prior visit including MRI of brain, cervical, thoracic and lumbar spine which shows active lesions consistent with demyelinating disease On Anticoagulants: No Related Data Previous Rx's Medication Instructions Recorded gabapentin 100 mg capsule See Rx Instructions .ROUTE 04/13/22 .COMPLEX #9 cap Allergies Allergy/AdvReac Type Severity Reaction Status Date / Time amoxicillin Allergy Verified 04/08/22 19:05 Sulfa (Sulfonamide Allergy Rash Verified 04/08/22 19:05 Antibiotics) ketorolac [From Toradol] AdvReac Verified 04/08/22 19:05 metoclopramide [From Reglan] AdvReac Verified 04/08/22 19:05 tramadol [From Ultram] AdvReac Verified 04/08/22 19:05 Review of Systems Review of Systems Narrative: GENERAL: Denies chills, fatigue, malaise, fever, sweats. HEENT: Denies sinus pain, ear pain, sore throat, difficulty swallowing, dizziness. RESPIRATORY: Denies dyspnea, cough, wheezing, hemoptysis, sputum. CARDIOVASCULAR: Denies chest pain, palpitations, orthopnea, edema, GASTROINTESTINAL: Denies nausea, vomiting, abdominal pain, diarrhea, constipation, melena. : Denies dysuria, frequency, incontinence, hematuria, urinary retention. MUSCULOSKELETAL: denies weakness, joint pain, or bony pain SKIN: Denies rash, skin lesions, or other NEUROLOGIC: See HPI PSYCHIATRIC: No concerning psychosocial issues. 12 point review of systems is negative except for those stated above Hematologic/Lymphatic On Anticoagulants: No Patient History Medical History Multiple sclerosis Social History Smoking Status: Never smoker Smoking Status: Never smoker alcohol intake frequency: 0-2 drinks per day Substance Use Type: does not use Exam Narrative Exam Narrative: GENERAL: [42] year old patient appears stated age. Well-developed patient, in mild distress. HEAD: Atraumatic. Normocephalic. EYES: Pupils equal round and reactive. Extraocular motions intact. No scleral icterus. No injection or drainage. ENT: Nose without bleeding, purulent drainage. Throat without erythema, tonsillar hypertrophy or exudate. Airway patent. NECK: Trachea midline. Non tender CARDIOVASCULAR: Regular rate and rhythm without murmurs, gallops, or rubs. RESPIRATORY: Clear to auscultation. Breath sounds equal bilaterally. No wheezes, rales, or rhonchi. GASTROINTESTINAL: Abdomen soft, non-tender, nondistended. EXTREMITIES: No edema or joint tenderness. BACK: Nontender without deformity or crepitance. No flank tenderness. NEURO: AOx3. CNII-XII grossly in tact SKIN: No rash or erythema of visible areas Initial Vital Signs Initial Vital Signs: Vital Signs Temperature 96.8 F L 04/12/22 21:10 Pulse Rate 71 04/12/22 21:10 Respiratory Rate 16 04/12/22 21:10 Blood Pressure 123/67 04/12/22 21:10 Pulse Oximetry 98 04/12/22 21:10 Course Orders Ordered: Discontinued Medications Gabapentin (Gabapentin 100 Mg Capsule) 100 mg PO NOW ONE Stop: 04/13/22 05:22 Last Admin: 04/13/22 05:29 Dose: 100 mg Documented by: LISA Methylprednisolone 1,000 mg/ (Sodium Chloride) 258 mls @ 258 mls/hr IV NOW ONE Stop: 04/12/22 23:39 Last Infusion: 04/13/22 01:16 Dose: 0 mls/hr Documented by: Admin: 04/13/22 00:10 Dose: 258 mls/hr Documented by: OLIVIER Reevaluation(s) Reevaluation #1: Patient continues to have no notable change in symptomatology after now her 4th round of steroids Consultations Consultation #1: Discussed with on-call Neurology at the [facility] (Dr. Messer) and after lengthy discussion of history, physical, labs, recent MRIs and prior visits there is no recommendation for other MS specific treatment as the imaging does not obviously demonstrate active disease and there is some concern that this may be pseduoflare. She has relayed info to patients primary neurologist and suggests a return call to patient will be made tomorrow. Dr. Messer states patient may do a few more days of Solumedrol or even consider neurontin or lyrica Vital Signs Vital signs: Vital Signs - 8 hr 04/12/22 21:10 Temperature 96.8 F L Pulse Rate 71 Respiratory Rate 16 Blood Pressure 123/67 Pulse Oximetry 98 MDM - Neuro Symptoms/Deficit Lab Data Result diagrams: 04/12/22 23:59 04/12/22 23:59 Labs: Lab Results 04/12/22 04/12/22 Range/Units 23:59 23:59 WBC 8.4 (4.5-11.0) X10^3/uL RBC 4.64 (4.0-5.2) X10^6/uL Hgb 14.1 (12.0-16.0) g/dL Hct 41.6 (36-46) % MCV 89.7 (80-100) fL MCH 30.3 (26-34) PG MCHC 33.8 (30-36) % RDW 13.4 (11.6-14.8) % Plt Count 93 L (150-400) X10^3/uL Neut % (Auto) Not Reportable Lymph % (Auto) Not Reportable Collin % (Auto) Not Reportable Eos % (Auto) Not Reportable Baso % (Auto) Not Reportable Lymph # (Auto) Not Reportable Collin # (Auto) Not Reportable Baso # (Auto) Not Reportable Total Counted 100 Seg Neutrophils % 59.0 (38-70) % Band Neutrophils % 1.0 L (3-7) % Lymphocytes % (Manual) 37.0 (25-45) % Monocytes % (Manual) 1.0 L (2-11) % Eosinophils % (Manual) 2.0 (2-4) % Neutrophils # (Manual) 5040 (2394-8873) /uL Differential Comment Normal morphology Platelet Estimate Decreased on smear RBC Morphology Normal morphology Sodium 138 (137-145) mmol/L Potassium 4.2 (3.4-5.1) mmol/L Chloride 104 (98-107) mmol/L Carbon Dioxide 26 (22-32) mmol/L BUN 16 (7-17) mg/dL Creatinine 0.61 (0.52-1.04) mg/dL Estimated GFR > 60 (>60) mL/min BUN/Creatinine Ratio 26.2 H (6-22) Glucose 81 (70-100) mg/dL Calcium 8.9 (8.4-10.2) mg/dL Total Bilirubin 0.3 (0.2-1.3) mg/dL AST 28 (14-36) IU/L ALT 39 H (<35) IU/L Alkaline Phosphatase 46 (38-126) U/L Total Protein 6.9 (6.3-8.2) g/dL Albumin 4.2 (3.5-5.0) g/dL Globulin 2.7 (1.7-4.1) g/dL Albumin/Globulin Ratio 1.6 (1.0-2.8) Discharge Plan Departure Patient Disposition: Home Clinical Impression: Multiple sclerosis exacerbation Instructions: DI for Multiple Sclerosis Activity Restrictions/Additional Instructions: *You have been diagnosed with [neurologic symptoms consistent with likely MS flare *What to do: *Please continue to take your regular medications as directed. [x ] New medication prescriptions sent to your pharmacy: [[facility] in [place] ] [ ] New medication written as a paper prescription [ ] No new medications given *As we discussed the exceptional student education teacher neurologist was sending information to your neurologist at and you should expect a call tomorrow. *Return to Emergency Department if you should have any new, worsening or concerning symptoms Prescriptions: New gabapentin 100 mg capsule See Rx Instructions .ROUTE .COMPLEX Qty: 9 0RF Rx Instructions: 100 mg orally daily x3 days, then 100 mg orally twice daily x 3 days Referrals: Carlos Manuel Villalta DO [Primary Care Provider] - Visit Report Forms: Patient Portal/API
[2022-04-13 04:21] LABS: Morphology Comment Normal Morphology; Neutrophils Absolute Manual 5040 /uL (3000-5900); Platelet Estimate Decreased on smear; Total Cells Counted 100
[2022-04-13 04:25] LABS: RBC Morphology Normal Morphology
[2022-04-13] MEDS: GABAPENTIN 100 MG CAPSULE PO (05:29)
[2022-04-13 05:31] VITALS: BP 109/67; PULSE 108; RESP 17; O2SAT 98
== END 2022-04-13 06:21 | disposition home or self-care (01) ==
PROVIDERS: Emergency Provider Emergency Medicine; PCP Family Medicine
DX: G35 Multiple sclerosis (principal)
CPT/HCPCS: 36415; 80053; 85007; 85025; 96365; 99284; J2930